=== PATIENT | male | born 1940 | race Two or more races ===

== ENCOUNTER 2023-10-10 07:36 | Day surgery (SDC) | payer MEDICARE, BC ==
[2023-10-10] VITALS (8 sets, daily range): BP systolic 122–151; BP diastolic 60–79; PULSE 58–67; RESP 15–19; TEMP 97.7; O2SAT 99–100
[~2023-10-10] VITALS: Ht 182.9 cm; Wt 104.3 kg
[~2023-10-10 07:36] MED LIST: AMIO100T3 OR; APIX5TAB PO; ATOR20TA50 PO; CHOL10009 PO; CIPR500T4 PO; CRAN1CHW3 PO; CYAN1TAB11 PO; MAGN400T40 PO; METO1TAB9 PO
[2023-10-10] MEDS: fentaNYL CITRATE 100 MCG/2 ML VL IV ONE (08:45)
[2023-10-10] MEDS: MIDAZOLAM HCL 2MG/2ML 2ml VIAL (1mg/ml) IV ONE (08:45)
[2023-10-10] MEDS: LIDOCAINE VISCOUS 2% 15ML UD PO ONE (08:45)
== END 2023-10-10 10:30 | disposition home or self-care (01) ==
LOC: CATH 07:36
PROVIDERS: ATTEND Internal Medicine Cardiovascular Disease
DX: I08.3 Combined rheumatic disorders of mitral, aortic and tricuspid valves (principal); I25.10 Atherosclerotic heart disease of native coronary artery without angina pectoris; I48.0 Paroxysmal atrial fibrillation; N18.9 Chronic kidney disease, unspecified; Z79.899 Other long term (current) drug therapy; Z98.62 Peripheral vascular angioplasty status; Z98.890 Other specified postprocedural states; Z87.891 Personal history of nicotine dependence; Z88.6 Allergy status to analgesic agent
CPT/HCPCS: 93312; 93325; J2250; J3010; 99152

== ENCOUNTER 2024-01-06 06:37 | Day surgery (SDC) | payer MEDICARE, BC ==
[~2024-01-06] VITALS: Ht 182.9 cm; Wt 102.1 kg
[~2024-01-06 06:37] MED LIST changes: -CHOL10009 PO; -CIPR500T4 PO; -CRAN1CHW3 PO; -CYAN1TAB11 PO; +FURO40TA4 PO; +METH4TAB9 PO; +POTA-228 PO
[2024-01-06] MEDS ORDERED: HEPARIN IN NS 1000Units/500mL 1,500 ML ONE (07:32)
[2024-01-06] MEDS ORDERED: IOHEXOL 350 MG/ML 100ML IJ ONE ×2 (07:32→10:13)
[2024-01-06] MEDS ORDERED: IODIXANOL 320MG/ML 100ML BTL IV ONE (07:32)
[2024-01-06] MEDS ORDERED: LIDOCAINE 2%HCL (LOCAL ANESTH.) INJ 20ML MDV ONE (07:32)
[2024-01-06] MEDS ORDERED: ANGIOMAX 250 MG VIAL IV ONE (09:09)
[2024-01-06] MEDS ORDERED: VERAPAMIL 2.5MG/ML INJ 2ML VIAL IV ONE (09:09)
[2024-01-06] MEDS ORDERED: ATROPINE SULF 1 MG/10ml SYR ONE (09:09)
[2024-01-06] MEDS ORDERED: fentaNYL CITRATE 100 MCG/2 ML VL ONE (09:09)
[2024-01-06] MEDS ORDERED: MIDAZOLAM HCL 2MG/2ML 2ml VIAL (1mg/ml) ONE (09:10)
[2024-01-06] MEDS ORDERED: SODIUM CHL 0.9% 50 ML ONE (09:10)
[2024-01-06] MEDS ORDERED: EPINEPHrine HCL 1 MG/10 ML SYRG ONE (09:10)
[2024-01-06] MEDS ORDERED: CLOPIDOGREL BISULFATE 75 MG TAB ONE (10:26)
[2024-01-06] MEDS ORDERED: CLOP75TA28 PO (12:34)
== END 2024-01-06 14:12 | disposition home or self-care (01) ==
LOC: CATH 06:37
PROVIDERS: ATTEND Internal Medicine Cardiovascular Disease
DX: R07.9 Chest pain, unspecified (principal); T82.855A Stenosis of coronary artery stent, initial encounter; I35.0 Nonrheumatic aortic (valve) stenosis; I48.0 Paroxysmal atrial fibrillation; I25.10 Atherosclerotic heart disease of native coronary artery without angina pectoris; I12.9 Hypertensive chronic kidney disease with stage 1 through stage 4 chronic kidney disease, or unspecified chronic kidney disease; N18.9 Chronic kidney disease, unspecified; E78.5 Hyperlipidemia, unspecified; Z79.899 Other long term (current) drug therapy; Z98.890 Other specified postprocedural states; Z87.891 Personal history of nicotine dependence; Z79.01 Long term (current) use of anticoagulants; Z88.6 Allergy status to analgesic agent
CPT/HCPCS: 93454; C1725; C1769; C1874; C1887; C1894; C9600; J0583; J1644; J2250; J3010; Q9967; 99152; 99153